=== PATIENT | male | born 1955 | race African-American/Black ===

== ENCOUNTER 2022-04-28 13:51 | Emergency (ER) | payer OTHER ==
[~2022-04-28] VITALS: Ht 177.8 cm; Wt 82.0 kg
[2022-04-28] MEDS ORDERED: SODIUM CHLORIDE 0.9% 1,000 ML IV ONE (15:00)
[2022-04-28 15:41] LABS: EOSINOPHILS % 0.7 % (0.0-5.0); HEMATOCRIT. 36.3 % (42.0-52.0); HEMOGLOBIN. 11.8 g/dL (14.0-18.0); LYMPHOCYTES % 12.4 % (20.0-50.0); MEAN CORPUSCULAR HEMOGLOBIN 27.5 pg (28.0-32.0); MEAN CORPUSCULAR VOLUME 84.3 fL (80.0-94.0); MEAN PLATELET VOLUME 8.1 fl (7.4-10.4); MONOCYTES % 12.9 % (2.0-8.0); PLATELET 194 x1000/uL (130-400); RED BLOOD CELL COUNT 4.31 mill/uL (4.7-6.1); RED CELL DISTRIBUTION WIDTH 15.3 % (11.6-14.6)
[2022-04-28 15:48] LABS: CHLORIDE 111 mEq/L (98-107)
[2022-04-28] MEDS ORDERED: ASPIRIN 325MG EC TABLET PO ONE (17:00)
[2022-04-29 01:00] VITALS: BP 157/85
== END 2022-04-29 01:45 | disposition short-term general hospital (02) ==
LOC: ER 14:14
DX: E11.649 Type 2 diabetes mellitus with hypoglycemia without coma (principal); N28.9 Disorder of kidney and ureter, unspecified; R77.8 Other specified abnormalities of plasma proteins; I10 Essential (primary) hypertension; Z20.822 Contact with and (suspected) exposure to COVID-19
CPT/HCPCS: 36415; 71045; 80053; 82962; 83880; 84484; 85025; 87426; 93005; 96360; 99285; C9803; J7030